=== PATIENT | female | born 1985 | race Two or more races ===

== ENCOUNTER 2025-02-02 20:16 | Emergency (ER) | payer OTHER ==
[~2025-02-02] VITALS: Ht 165.1 cm; Wt 56.7 kg
[2025-02-02] MEDS ORDERED: CEPH-570 PO (20:36)
[2025-02-02 20:53] VITALS: BP 110/74; TEMP 98; O2SAT 97
[2025-02-02 20:59] LABS: APPEARANCE,URINE SLIGHTLY CLOUDY (CLEAR); BLOOD, URINE 3+ Ery/uL (NEGATIVE); LEUKOCYTE ESTERASE ,URINE 3+ (NEGATIVE); NITRITE, URINE POSITIVE (NEGATIVE); UGLUCOSE NEGATIVE (NEGATIVE)
[2025-02-02 21:13] LABS: ADD URINE CULTURE YES; SQUAMOUS EPITHELIAL CELL,UR Few /HPF (None Seen)
== END 2025-02-02 20:54 | disposition home or self-care (01) ==
LOC: ER 20:24
DX: N30.01 Acute cystitis with hematuria (principal); Z87.440 Personal history of urinary (tract) infections
CPT/HCPCS: 81001; 84703-TC; 87086-TC; 87186-TC